=== PATIENT | female | born 1965 | race Two or more races ===

== ENCOUNTER 2020-07-22 20:40 | Emergency (ER) | payer OTHER ==
[~2020-07-22] VITALS: Ht 154.9 cm; Wt 72.6 kg
[2020-07-22] MEDS ORDERED: ACETAMINOPHEN ES 500 MG TABLET ONE (20:52)
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
[2020-07-22] MEDS ORDERED: ACETAMINOPHEN 325 MG TABLET PO ONE (21:00)
[2020-07-22] MEDS ORDERED: IBUP-1955 PO (21:39)
[2020-07-22] MEDS ORDERED: CYCL5TAB PO (21:39)
--- NOTE | 2020-07-22 21:53 | NUR ---
Patient discharged to home in stable condition. Written and verbal after care instructions given. Patient verbalizes understanding of instruction. Pt ambulatory with a steady gait
[2020-07-22 21:54] VITALS: BP 124/84
== END 2020-07-22 21:59 | disposition home or self-care (01) ==
LOC: ER 20:55
DX: M54.2 Cervicalgia (principal); M25.511 Pain in right shoulder; M54.5 Low back pain; Z79.899 Other long term (current) drug therapy
CPT/HCPCS: 72040-TC; 72100-TC; 73030-TC

== ENCOUNTER 2024-09-24 10:52 | Emergency (ER) | payer OTHER ==
[~2024-09-24] VITALS: Ht 154.9 cm; Wt 71.2 kg
[~2024-09-24 10:52] MED LIST: CYCL5TAB PO; IBUP-1955 PO
[2024-09-24 11:02] VITALS: TEMP 97.5
[2024-09-24] MEDS ORDERED: NAPR-1164 PO (12:28)
[2024-09-24 12:58] VITALS: BP 130/78; O2SAT 100
== END 2024-09-24 13:00 | disposition home or self-care (01) ==
LOC: ER 10:57
DX: M17.12 Unilateral primary osteoarthritis, left knee (principal); Z79.899 Other long term (current) drug therapy
CPT/HCPCS: 73564-TC; 93971-TC